=== PATIENT | female | born 1975 | race Caucasian/White ===

== ENCOUNTER 2017-03-21 18:54 | Outpatient (CLI) | payer BC ==
--- NOTE | 2017-03-22 12:02 | Ultrasound Report ---
PELVIC ULTRASOUND: 03/21/2017 CLINICAL INDICATION: Pain. TECHNIQUE: Transabdominal pelvic ultrasound performed for global evaluation. Transvaginal pelvic ul trasound performed for detailed evaluation. Real-time scanning performed and static images obtained. FINDINGS: The uterus and right ovary are surgically absent. The left ovary measures 3.6 x 3.0 x 3.0 cm, and contains a hemorrhagic 1.7 cm cyst. No free fluid is present. IMPRESSION: A 1.7 CM HEMORRHAGIC LEFT OVARIAN CYST. POSTOPERATIVE CHANGES. JOB #: [id number] EXT JOB #:[id number]
== END 2017-03-21 18:55 | disposition home or self-care (01) ==
LOC: DI 18:54
PROVIDERS: ATTEND Family Medicine
DX: N83.202 Unspecified ovarian cyst, left side (principal)
CPT/HCPCS: 76830; 76856